=== PATIENT | male | born 1955 | race Hispanic/Latino ===

== ENCOUNTER 2024-08-29 06:19 | Day surgery (SDC) | payer OTHER ==
[2024-08-16 13:29] LABS: Absolute Basophils 0.1 K/uL (0-0.5); Absolute Eosinophils 0.2 K/uL (0-0.5); Absolute Lymphocytes (CBC) 2.1 K/uL (0.7-4.9); Absolute Monocytes 0.6 K/uL (0.1-1.3); Absolute Neutrophil 5.1 K/uL (1.8-8.0); Basophils % 1.2 % (0-1.3); Eosinophils % 2.6 % (0-4.4); Hematocrit 38.3 % (39.6-49.0); Hemoglobin 13.5 g/dL (13.6-17.9); Lymphocytes % 25.9 % (15.3-44.8); MCH 32.1 pg (27.0-35.0); MCHC 35.3 g/dL (32.0-36.0); MPV 8.2 fL (7.6-11.3); Monocytes % 7.8 % (3.3-12.3); Neutrophils % 62.5 % (41.7-73.7); Platelets 197 thou/uL (152-406); RBC Red Blood Cell Count 4.21 M/uL (4.33-5.43); Red Cell Distribution Width 12.8 % (12.1-15.2)
[2024-08-16 13:53] LABS: PT Prothrombin Time 12.2 SECONDS (10-13.0); Protime INR 1.07
--- NOTE | 2024-08-16 23:05 | RAD REPORT ---
EXAMINATION: TWO VIEW CHEST XR CLINICAL INDICATION: Male, 69 years old. [facility] Pre-op pending Spaceoar. Hypertension TECHNIQUE: 2 view radiographs of the chest were performed. COMPARISON: No prior exam. FINDINGS: The lungs are well inflated and clear. No pneumothorax or sizable effusion. The heart is normal in si ze. Mediastinal contours are unremarkable. Left posterolateral rib deformities, suggesting healing or healed fractures. IMPRESSION: No acute or significant abnormalities.
--- NOTE | 2024-08-18 14:46 | EKG ---
Test Date: 2024-08-16 Test Time: 13:03:45 Senior Medical Billing Specialist: MARILOU MEASUREMENT RESULTS: Intervals: Rate: 56 NH: 184 QRSD: 72 QT: 410 QTc: 395 [place]: P: 12 NH: 184 QRS: 30 T: 3 INTERPRETIVE STATEMENTS: Sinus bradycardia Otherwise normal ECG Compared to ECG 02/21/2001 04:18:00 Sinus rhythm no longer present Electronically Signed On 08-18-24 14:42:31 CDT by Tyler Garrett
[2024-08-29] MEDS: Ringers Lactate 1,000 ML IV ONE (06:45)
[2024-08-29] MEDS ORDERED: propofoL 200 MG/20 ML VIAL IV ONE (06:59)
[2024-08-29] MEDS ORDERED: MIDAZOLAM HCL 2 MG/2 ML INJ ONE (06:59)
[2024-08-29] MEDS ORDERED: LIDOCAINE 1% MPF 5 ML VIAL ONE (06:59)
[2024-08-29] MEDS ORDERED: FENTANYL CITR 100 MCG/2 ML ONE (06:59)
[2024-08-29] MEDS: CEFAZOLIN SODIUM 2 GM/VIAL ONE (07:40)
[2024-08-29] MEDS ORDERED: ONDANSETRON 4 MG/2 ML VIAL ONE (08:08)
[2024-08-29] MEDS ORDERED: CODEINE 30MG/APAP 300MG TAB PO PRN (08:25)
--- NOTE | 2024-08-29 08:38 | P.OP ---
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 Shane is a 69-year-old gentleman who presented to the urology clinic with a prostate nodule and elevated PSA. He underwent a biopsy revealing the presence of favorable intermediate risk prostate cancer and elected radiation therapy. SpaceOAR gel was requested to decrease the incidence of radiation proctitis, and fiducial markers were requested to aid in targeting. Procedure note: The patient was consented in the preoperative holding area before being transferred to the operative suite where general anesthesia was induced. He was given Ancef 2 g IV antimicrobial prophylaxis, and pneumoboots were provided for DVT prophylaxis. He was placed in the high lithotomy position, padded and secured appropriately. His genitalia was elevated out of the perineal region using an Ioban drape, and Betadine was used to prep the perineal region. A transrectal ultrasound probe was placed via the anus into the rectum and the prostate was visualized from the perineal region all the way to the base at the seminal vesicles. A very clear white stripe of prerectal fat was identifiable. As a result, I started the procedure and the patient's left lateral perineum off the midline about 1.5 to 2 cm above the anus, and I was able to navigate a fiducial marker under ultrasound guidance through the urogenital diaphragm and into the prostate anteriorly. I navigated the fiducial marker to the left mid g land and a inserted it at that location anteriorly. I then remove the needle and turned my attention to the patient's right lateral Zhang prostate and similarly placed a fiducial marker through the perineum and the urogenital diaphragm into the prostate anteriorly on the right and navigated the needle into the mid gland where a second fiducial marker was placed. Once I remove the needle for that fiducial marker, I then took the SpaceOAR insertion needle primed with 10 cc of saline, and I inserted the needle directly in the midline about 1 cm above the anus and navigated the needle over the rectal hump and into the prerectal fat plane, and navigating the needle through the flat plane taking care not to enter into the rectum and ultimately to the mid base of the prostate in the midline. Efforts were taken to ensure the tip of the needle was situated in the midline at the level of the urethra, and at this point, I aspirated to ensure no blood or succus before injecting about 1 cc of saline hydro-dissecting beautifully in the midline and the rectum from the peripheral zone of the prostate. I then switched the saline syringe for the SpaceOAR components and injected the SpaceOAR mixture at the same site creating a beautiful separation between the prostate and the rectum as evidenced ultrasonographically that extended from the base all the way to the apex and across the midline symmetrically. As a result, I removed the needle. The Betadine was cleansed from his perineal region, and he was taken out of the lithotomy position. He was then awakened from general anesthesia before being transferred to a stretcher and then transferred to the recovery room in good condition. Complications: None Discharge disposition: He should schedule follow-up with Dr. Arboleda to begin simulation for radiation therapy treatment. Subsequent follow-up with me should be established about 6 months after he completes the radiation, or about 9 to 10 months from now. Should he have any issues of urologic nature, sooner follow-up may be arranged.
[2024-08-29 09:53] VITALS: O2SAT 99
[2024-08-29 09:54] VITALS: BP 140/78; TEMP 97
== END 2024-08-29 09:26 | disposition home or self-care (01) ==
LOC: PRE 06:19 → OR 09:26
PROVIDERS: ATTEND Urology
PROC: 0VH43YZ Insertion of Other Device into Prostate and Seminal Vesicles, Percutaneous Approach (ICD-10-PCS; principal; 2024-08-29 07:30)
DX: C61 Malignant neoplasm of prostate (principal); N40.1 Benign prostatic hyperplasia with lower urinary tract symptoms
CPT/HCPCS: 93005; 87088; 85025; 87086; 80048; 36415; 85610; 87077; 87186; 71046; 55874; J2704; J2003; J2250; J3010; J2405; J7120